=== PATIENT | male | born 2000 | race Caucasian/White ===

== ENCOUNTER 2018-11-15 10:28 | Emergency (ER) | payer OTHER ==
--- NOTE | 2018-11-15 11:38 | UC ---
HPI Wound/Suture Re-check - HPI Summary HPI Summary: 18 yo male presents here for suture removal no complaints in 13 days - History Of Current Complaint Stated Complaint: SUTURE REMOVAL Time Seen by Provider: 11/15/18 11:33 Hx Obtained From: Patient Onset/Duration: Sudden Onset Surgical Site: left hand Severity: Mild Pain Intensity: 0 Pain Scale Used: 0-10 Numeric Procedure Type: suture repain - Allergies/Home Medications Allergies/Adverse Reactions: Allergies Allergy/AdvReac Type Severity Reaction Status Date / Time No Known Allergies Allergy Verified 11/15/18 11:37 Home Medications: Home Medications NK [No Home Medications Reported] 11/15/18 [History Confirmed 11/15/18] PMH/Surg Hx/FS Hx/Imm Hx Previously Healthy: Yes - Surgical History Surgical History: Yes Surgery Procedure, Year, and Place: tonsils - Family History Known Family History: Positive: Non-Contributory - Social History Alcohol Use: None Substance Use Type: None Smoking Status (MU): Never Smoked Tobacco Review of Systems All Other Systems Reviewed And Are Negative: Yes Constitutional: Positive: Negative Skin: Positive: Negative Eyes: Positive: Negative ENT: Positive: Negative Respiratory: Positive: Negative Cardiovascular: Positive: Negative Gastrointestinal: Positive: Negative Genitourinary: Positive: Negative Motor: Positive: Negative Neurovascular: Positive: Negative Musculoskeletal: Positive: Negative Neurological: Positive: Negative Psychological: Positive: Negative Physical Exam Triage Information Reviewed: Yes Appearance: Well-Appearing, No Pain Distress, Well-Nourished Vital Signs: BP 136/70 AF Vital Signs Reviewed: Yes Eyes: Positive: Conjunctiva Clear ENT: Positive: Hearing grossly normal. Negative: Nasal congestion, Nasal drainage, Trismus, Muffled voice, Hoarse voice Dental Exam: Normal Neck: Positive: Supple, Nontender, No Lymphadenopathy Respiratory: Positive: Lungs clear, Normal breath sounds, No respiratory distress Cardiovascular: Positive: RRR, No Murmur Musculoskeletal: Positive: ROM Intact, No Edema Neurological: Positive: Alert Psychological Exam: Normal Skin Exam: Other - healing lac left hand sl sweling, no erythema, no d/c Course/Dx - Course Course Of Treatment: sutures removed and steristrips applied by me - Diagnosis Provider Diagnosis: Visit for suture removal Discharge ED - Sign-Out/Discharge Documenting (check all that apply): Patient Departure All imaging exams completed and their final reports reviewed: No Studies - Discharge Plan Condition: Stable Disposition: HOME Referrals: No Primary Care Phys,NOPCP [Primary Care Provider] - Additional Instructions: suture removal steristrips call for any questions and return for any problems your BP was slightly elevated (pre hypertensive range) It problably would be a good idea to get it rechecked in 6-12 weeks - Billing Disposition and Condition Condition: STABLE Disposition: Home
[2018-11-15 11:40] VITALS: BP 136/70
[2018-11-15] MEDS ORDERED: Benzoin Compound STICK TOPICAL ONE (11:49)
== END 2018-11-15 12:00 | disposition home or self-care (01) ==
LOC: UCEAST 10:28
DX: S61.412D Laceration without foreign body of left hand, subsequent encounter (principal); X58.XXXD Exposure to other specified factors, subsequent encounter

== ENCOUNTER 2019-05-06 21:08 | Emergency (ER) | payer OTHER ==
[2019-05-06 21:24] VITALS: BP 132/70
[2019-05-06] MEDS ORDERED: Acetaminophen TAB* 325 MG PO ONE (21:51)
--- NOTE | 2019-05-06 21:52 | UC ---
Head Injury HPI - HPI Summary HPI Summary: 18-year-old male comes in with chief complaint of head injury. His prior to arrival he was ice-skating and he slipped and fell and struck the back of his head. No loss of consciousness. Denies any change in vision no photophobia or difficulty with speech no weakness or numbness. No complaint of any neck pain. He Is not not nauseous. Has not had any vomiting. When he first fell he did briefly feel an electric shock go through his arms back and legs. He has no neck back arm or leg pain at this time. No difficulty with balance. No weakness or numbness. - History Of Current Complaint Chief Complaint: UCHeadInjury Stated Complaint: HEAD INJURY Time Seen by Provider: 05/06/19 21:41 Pain Intensity: 2 - Allergies/Home Medications Allergies/Adverse Reactions: Allergies Allergy/AdvReac Type Severity Reaction Status Date / Time No Known Allergies Allergy Verified 05/06/19 21:23 Home Medications: Home Medications NK [No Home Medications Reported] 11/15/18 [History Confirmed 05/06/19] PMH/Surg Hx/FS Hx/Imm Hx Previously Healthy: Yes - Surgical History Surgical History: Yes Surgery Procedure, Year, and Place: tonsils - Family History Known Family History: Positive: Non-Contributory - Social History Alcohol Use: Occasionally Substance Use Type: None Smoking Status (MU): Never Smoked Tobacco - Immunization History Most Recent Tetanus Shot: UTD Review of Systems All Other Systems Reviewed And Are Negative: Yes Constitutional: Positive: Other - SEE HPI Skin: Positive: Negative Eyes: Positive: Negative ENT: Positive: Negative Respiratory: Positive: Negative Cardiovascular: Positive: Negative Gastrointestinal: Positive: Negative Motor: Positive: Negative Neurovascular: Positive: Negative Musculoskeletal: Positive: Other: - SEE HPI Neurological/Mental Status: Positive: Headache Psychological: Positive: Negative Is Patient Immunocompromised?: No Physical Exam Triage Information Reviewed: Yes Appearance: Well-Appearing, No Pain Distress, Well-Nourished Vital Signs: Initial Vital Signs Temp 97.9 F 05/06/19 21:20 Pulse 73 05/06/19 21:20 Resp 18 05/06/19 21:20 BP 132/70 05/06/19 21:20 Pulse Ox 100 05/06/19 21:20 Vital Signs Reviewed: Yes Eye Exam: Normal Eyes: Positive: Conjunctiva Clear, Other: - PERRLA EOMI. No photophobia. ENT: Positive: Other - Both ear canals had cerumen and the TMs were not visible. Patient is mildly tender to palpation on the occiput there is no swelling no crepitus.. Negative: Nasal drainage Neck: Positive: Supple, Nontender Respiratory: Positive: Lungs clear, Normal breath sounds, No respiratory distress Cardiovascular: Positive: RRR Musculoskeletal: Positive: Strength Intact, ROM Intact Neurological: Positive: Alert, Muscle Tone Normal, Other: - No facial droop. Normal sensation in the face and the arms. Arms and legs have full range of motion full-strength. Gait is normal. Psychological Exam: Normal Psychological: Positive: Age Appropriate Behavior Skin Exam: Normal Head Injury Course/Dx - Course Course Of Treatment: Patient has mild occipital headache after a fall. Denies any loss of consciousness nausea change in vision or speech or any focal neurologic deficit. No complaint of any confusion or feeling slow. At this time a CT is not indicated. I discussed all of this with the patient. Patient was given acetaminophen here in clinic. The plan is to take acetaminophen and avoid any activities that make the headache worse. Follow-up with sports medicine if not completely improved. Go to the emergency department if worse or any questions or concerns. - Differential Dx/Diagnosis Provider Diagnosis: Head injury Discharge ED - Sign-Out/Discharge Documenting (check all that apply): Patient Departure All imaging exams completed and their final reports reviewed: No Studies - Discharge Plan Condition: Stable Disposition: HOME Patient Education Materials: Head Injury (ED) Referrals: [facility] [Provider Group] Additional Instructions: FOLLOW UP WITH SPORTS MEDICINE. GO TO THE EMERGENCY DEPARTMENT IF WORSE; WEAKNESS, NUMBNESS, DIFFICULTY WITH VISION OR SPEECH, YOU FEEL ILL OR ANY QUESTIONS OR CONCERNS. - Billing Disposition and Condition Condition: STABLE Disposition: Home
[2019-05-06] MEDS ORDERED: Acetaminophen TAB* 325 MG ONE (22:01)
== END 2019-05-06 22:14 | disposition home or self-care (01) ==
LOC: UCEAST 21:08
DX: S09.90XA Unspecified injury of head, initial encounter (principal); H61.23 Impacted cerumen, bilateral; V00.211A Fall from ice-skates, initial encounter; Y92.9 Unspecified place or not applicable
CPT/HCPCS: 99211; A9270-GY; G0463